=== PATIENT | female | born 1950 | race Caucasian/White ===

== ENCOUNTER → 2017-03-15 | Outpatient (CLI) | payer BC | LOC: MC.RAD 10:38 | DX: Z12.31 Encounter for screening mammogram for malignant neoplasm of breast (principal) ==

== ENCOUNTER → 2017-03-15 | Outpatient (CLI) | payer BC ==
[~2017-03-15] MED LIST: ARICEPT10 MG PO; ASPIRIN E.C. 8181 MG PO; B-121000 MCG PO; CELEXA 20MG20 MG/TAB PO; MULTI VITAMINS1 TAB PO; NATURAL E400 IU PO; VITAMIN D 1001000 IU PO
== END ==
LOC: MC.RAD 10:00
DX: Z12.31 Encounter for screening mammogram for malignant neoplasm of breast (principal)

== ENCOUNTER 2017-05-05 08:42 | Emergency (ER) | payer BC, MEDICARE ==
[~2017-05-05] VITALS: Ht 162.6 cm; Wt 81.8 kg
[2017-05-05 08:43] VITALS: TEMP 97.3
[2017-05-05] MEDS ORDERED: INDERAL 10MG10 MG PO (08:54)
[2017-05-05 09:17] LABS: BASO # 0.1 (0.0-0.2); BASO % 1.2 % (0.0-2.0); EOS # 0.3 (0.0-0.7); EOS % 5.2 % (0-4.0); GRAN # 2.5 (1.4-6.5); GRAN % 47.7 % (42.2-75.2); HEMOGLOBIN 13.1 g/dl (12.5-16.0); LYMPH # 1.9 (1.2-3.4); LYMPH % 36.4 % (20.0-51.0); MEAN CELL VOLUME 100 fl (80.0-100.0); MEAN CORPUSCULAR HEMOGLOBIN 34 pg (27.0-31.0); MEAN CORPUSCULAR HGB CONC 34 g/dl (33.0-37.0); MEAN PLATELET VOLUME 9.9 fl (7.4-10.4); MONO # 0.5 (0.1-0.6); MONO % 9.1 % (1.7-9.3); PLATELET COUNT 114 K/mm3 (130-400); RED BLOOD COUNT 3.89 M/mm3 (4.10-5.30); REDCELL DISTRIBUTION WIDTH-CV 12.7 % (11.5-14.5)
[2017-05-05 09:25] LABS: ALBUMIN 3.9 gm/dL (3.5-5.0); BILIRUBIN,TOTAL 0.7 mg/dL (0.0-1.0); CALCIUM 9.5 mg/dL (8.4-10.2); CREATININE, serum 0.99 mg/dL (0.52-1.25); TOTAL PROTEIN 7.4 gm/dL (6.4-8.2)
[2017-05-05 09:32] LABS: POTASSIUM 5.8 mmol/L (3.4-5.0)
[2017-05-05 11:07] VITALS: BP 109/67; PULSE 68
== END 2017-05-05 11:16 | disposition home or self-care (01) ==
LOC: COL.ER 08:42
PROVIDERS: Family Medicine
DX: R55 Syncope and collapse (principal)

== ENCOUNTER → 2017-05-16 | Outpatient (CLI) | payer MEDICARE, BC ==
[~2017-05-16] MED LIST changes: +INDERAL 10MG10 MG PO
== END ==
LOC: COL.CARD 12:42
DX: R56.9 Unspecified convulsions (principal)

== ENCOUNTER 2017-08-24 13:15 | Outpatient (RCR) | payer MEDICARE, BC ==
[2017-09-23] MEDS ORDERED: DEPAKOTE ER 25250 MG PO (10:42)
[2017-09-23] MEDS ORDERED: MACRODANTIN100 PO (10:43)
[2017-09-27] MEDS ORDERED: XARELTO15 MG PO (10:47)
[2017-09-27] MEDS ORDERED: XARELTO20 MG PO (10:48)
== END 2017-11-09 | disposition home or self-care (01) ==
LOC: WSST
DX: G30.0 Alzheimer's disease with early onset (principal); F02.80 Dementia in other diseases classified elsewhere, unspecified severity, without behavioral disturbance, psychotic disturbance, mood disturbance, and anxiety; R48.9 Unspecified symbolic dysfunctions; R41.3 Other amnesia; G43.109 Migraine with aura, not intractable, without status migrainosus; R56.9 Unspecified convulsions
CPT/HCPCS: G9159-GN; G9160-GN